=== PATIENT | male | born 1995 | race Caucasian/White ===

== ENCOUNTER 2016-04-15 15:58 | Emergency (ER) | payer SELFPAY ==
--- NOTE | 2016-04-15 16:02 | ED Physician Chart ---
Chief Complaint/HPI - Patient Information Date Seen:: 04/15/16 Time Seen:: 16:00 Chief Complaint:: seizure History of Present Illness:: 20-year-old male with history of seizure disorder, brought in by ambulance with acute, moderate to severe, tonic-clonic seizure that lasted about 15-20 seconds that happened about 35 minutes prior to arrival to the ER. Has associated postictal state. Takes Xanax to control his seizures. Denies any oral trauma. Allergies:: Allergies Allergy/AdvReac Type Severity Reaction Status Date / Time UNOBTN - Unobtainable Allergy Verified 04/15/16 16:00 Historian:: Patient, EMS Review:: Nurse's Note Reviewed, EMS run form Reviewed Review of Systems - Review of Systems Other: Complete system review otherwise unremarkable except as noted in HPI. Past Medical History - Past Medical History Past Medical History: Seizures Family History: None Social History: Non Smoker, No Alcohol, Illicit Drug Use, Lives With Parents Surgical History: None Psychiatricy History: None Medication: Reviewed Family Medical History - Family Member Mother History Unknown: Yes Ethnicity: Non- Physical Exam - Physical Examination Other:: INITIAL VITAL SIGNS: Reviewed by me GENERAL: Alert and interactive. No acute distress. Somewhat uncooperative. HEAD: Head is normocephalic and atraumatic EYES: EOMI. . No scleral icterus. No conjunctival injection ENT: Moist mucous membranes. NECK: Supple. No masses. Full range of motion RESPIRATORY: No tachypnea. Clear breath sounds bilaterally. No wheezing, rales, or rhonchi CV: Regular rate and rhythm. No murmurs, rubs, or gallops ABDOMEN: Soft, non-distended, non-tender. No guarding. No rebound. No masses. EXTREMITIES: No deformity. No cyanosis. No edema. SKIN: Warm and dry. No obvious rashes. NEUROLOGIC: Alert and oriented. Face is symmetric. Speech is normal. Moves all extremities equally. Motor and sensory distally intact. Labs/Radiology/EKG Results - Lab Results Results: Lab Results 04/15/16 04/15/16 Range/Units 16:35 16:35 WBC 4.9 (4.8-10.8) Th/cmm RBC 5.37 (4.30-5.70) Mil/cmm Hgb 16.2 (13.2-17.3) gm/dL Hct 46.9 (39.0-49.0) % MCV 87.4 (80-99) fl MCH 30.2 H (26.0-30.0) pg MCHC Differential 34.6 (28.0-36.0) pg RDW 12.6 (11.5-20.0) % Plt Count 284 (150-400) Th/cmm MPV 7.9 fl Neutrophils % 51.1 (40.0-80.0) % Lymphocytes % 40.4 (20.0-50.0) % Monocytes % 6.0 (2.0-10.0) % Eosinophils % 2.0 (0.0-5.0) % Basophils % 0.5 (0.0-2.0) % Sodium 135 L (136-145) mEq/L Potassium 4.2 (3.5-5.1) mEq/L Chloride 104 (98-107) mEq/L Carbon Dioxide 21.9 (21.0-31.0) mEq/L Anion Gap 13.3 (7.0-16.0) BUN 13 (7-25) mg/dL Creatinine 1.1 (0.7-1.3) mg/dL Est GFR ( Amer) > 60.0 (>90) ml/min Est GFR (Non-Af Amer) > 60.0 ml/min BUN/Creatinine Ratio 11.8 Glucose 89 (70-105) mg/dL Calcium 9.6 (8.6-10.3) mg/dL Magnesium 2.4 (1.9-2.7) mg/dL Total Bilirubin 0.8 (0.3-1.0) mg/dL AST 14 (13-39) U/L ALT 15 (7-52) U/L Alkaline Phosphatase 60 (34-104) U/L Total Protein 7.6 (6.0-8.3) gm/dL Albumin 4.6 (4.2-5.5) gm/dL Globulin 3.0 gm/dL Albumin/Globulin Ratio 1.5 (1.0-1.8) - EKG Interpretations Comments:: 12-lead EKG Interpretation by Teto Powell MD: Normal Sinus Rhythm with ventricular rate of 84 beats per minute Normal axis Normal intervals No acute ST or T wave changes. No obvious STEMI ED Septic Shock - . Is Septic Shock (SBP<90, OR Lactate>4 mmol\L) present?: No Reassessment (Disposition) - Reassessment Reassessment:: The patient's blood pressure was elevated (>120/80) but appears stable without evidence of hypertensive emergency or urgency. The patient was counseled about the risks hypertension urged to pursue outpatient monitoring and therapy within a week with her primary care physician. Patient had tonic-clonic seizure last about 15-20 seconds. This was witnessed. There is no oral trauma. Patient has a long-standing history of seizure disorders. EKG and labs are essentially unremarkable. Patient does have a history of methamphetamine abuse. Discussed all findings with the patient. According to father who came to pick him up he is using methamphetamines and Xanax daily. Patient was ultimately discharged to home. He was alert and oriented 4. He was ambulatory to and from the bathroom without any gait abnormalities. Follow-up with PCP within one to 2 days. Gave return to ER precautions. Patient understands and agrees with the plan. - Diagnosis Diagnosis:: Seizure, acute Seizure disorder Methamphetamine abuse Elevated blood pressure without the diagnosis of hypertension - Patient Disposition Discharge/Transfer:: Home Time:: 17:50 Condition at Disposition:: Improved
[2016-04-15 16:54] LABS: % BASOPHILS 0.5 % (0.0-2.0); % LYMPHOCYTES 40.4 % (20.0-50.0); % NEUTROPHILS 51.1 % (40.0-80.0); HEMATOCRIT 46.9 % (39.0-49.0); HEMOGLOBIN 16.2 gm/dL (13.2-17.3); MEAN CELL VOLUME 87.4 fl (80-99); MEAN CORPUSCULAR HEMOGLOBIN 30.2 pg (26.0-30.0); MEAN CORPUSCULAR HGB CONC 34.6 pg (28.0-36.0); MEAN PLATELET VOLUME 7.9 fl; NEUTROPHILE ABSOLUTE 2.5 Th/cmm (1.8-8.0); PLATELET COUNT 284 Th/cmm (150-400); RED BLOOD COUNT 5.37 Mil/cmm (4.30-5.70); RED CELL DISTRIBUTION WIDTH 12.6 % (11.5-20.0); WHITE BLOOD COUNT 4.9 Th/cmm (4.8-10.8)
[2016-04-15 17:19] LABS: ANION GAP 13.3 (7.0-16.0); BUN - UREA NITROGEN 13 mg/dL (7-25); BUN/CREATININE RATIO 11.8; CALCIUM SERUM 9.6 mg/dL (8.6-10.3); CARBON DIOXIDE 21.9 mEq/L (21.0-31.0); CHLORIDE 104 mEq/L (98-107); CREATININE - SERUM 1.1 mg/dL (0.7-1.3); GLUCOSE 89 mg/dL (70-105); POTASSIUM SERUM 4.2 mEq/L (3.5-5.1); SODIUM SERUM 135 mEq/L (136-145)
[2016-04-15 17:20] LABS: ALB/GLOB RATIO 1.5 (1.0-1.8); BILIRUBIN,TOTAL 0.8 mg/dL (0.3-1.0)
[2016-04-15 17:21] LABS: ALKALINE PHOSPHATASE 60 U/L (34-104); MAGNESIUM 2.4 mg/dL (1.9-2.7); SGOT 14 U/L (13-39); SGPT/ALT 15 U/L (7-52)
[2016-04-15 19:09] LABS: AMPHETAMINE URINE POSITIVE (NEGATIVE); BARBITURATES URINE NEGATIVE (NEGATIVE)
[2016-04-15 19:10] LABS: URINE BILIRUBIN NEGATIVE (NEGATIVE); URINE BLOOD NEGATIVE (NEGATIVE); URINE COLOR YELLOW; URINE GLUCOSE (UA) NEGATIVE (NEGATIVE); URINE KETONE NEGATIVE (NEGATIVE); URINE PROTEIN NEGATIVE (NEGATIVE); URINE UROBILINOGEN >=8.0 E.U./dL (0.2 - 1.0)
[2016-04-15 19:11] LABS: URINE AMORPHOUS SEDIMENT MODERATE PHOSPHATES (NONE SEEN); URINE BACTERIA NONE SEEN /hpf (NONE SEEN); URINE EPITHELIAL CELLS NONE SEEN /lpf (FEW); URINE RBC NONE SEEN /hpf (0-5); URINE WBC NONE SEEN /hpf (0-5)
== END 2016-04-15 17:50 | disposition home or self-care (01) ==
LOC: ER 15:58 → EDBD 15:58 → ER 17:50
DX: G40.909 Epilepsy, unspecified, not intractable, without status epilepticus (principal); F15.10 Other stimulant abuse, uncomplicated; R03.0 Elevated blood-pressure reading, without diagnosis of hypertension
CPT/HCPCS: 99285; 96372; 93005; 36415; 80300; 85025; 81001; 83735; 80053; J2060